=== PATIENT | male | born 1990 | race Caucasian/White ===

== ENCOUNTER 2017-10-21 15:17 | Emergency (ER) | payer SELFPAY ==
[~2017-10-21] VITALS: Ht 180.3 cm; Wt 76.9 kg
[2017-10-21 15:35] VITALS: BP 142/97
[2017-10-21] MEDS ORDERED: PANTOPRAZOLE 40 MG IV IVPush ONE (16:00)
[2017-10-21] MEDS ORDERED: FAMOTIDINE 20 MG/2 ML IVPush ONE (16:00)
[2017-10-21] MEDS ORDERED: SODIUM CHLORIDE FLUSH 10ML SYR IVF ONE (16:00)
[2017-10-21] MEDS ORDERED: SODIUM CHLORIDE 0.9% 1,000ML IVBOLUS ONE (16:00)
[2017-10-21 16:15] LABS: HEMATOCRIT 37.5 % (39.2-51.8); HEMOGLOBIN 12.9 g/dL (13.7-18.0); WHITE BLOOD COUNT 6.4 x10^3/uL (3.4-10)
[2017-10-21 16:27] LABS: ASPARTATE AMINO TRANSFERASE 122 U/L (15-37); BLOOD UREA NITROGEN 14 mg/dL (7-18)
[2017-10-21] MEDS ORDERED: PANTOPRAZOLE 40 MG IV ONE (17:14)
[2017-10-21] MEDS ORDERED: ONDANSETRON 2MG/ML, 2ML ONE (17:15)
[2017-10-21] MEDS ORDERED: FAMOTIDINE 20 MG/2 ML ONE (17:15)
[2017-10-21] MEDS ORDERED: ONDANSETRON 2MG/ML, 2ML IVPush ONE (17:30)
== END 2017-10-21 18:32 | disposition home or self-care (01) ==
LOC: ED 17:45
DX: K29.71 Gastritis, unspecified, with bleeding (principal)
CPT/HCPCS: 36415; 80053; 83690; 85025; 86677; 96361; 96374; 96375; 99285; C9113; J2405; J7030; S0028